=== PATIENT | male | born 1970 | race Caucasian/White ===

== ENCOUNTER 2017-01-28 09:34 | Emergency (ER) | payer OTHER ==
[~2017-01-28] VITALS: Ht 167.6 cm; Wt 120.2 kg
[~2017-01-28 09:34] MED LIST: ULTRAM 50MG TAB50 MG PO
[2017-01-28 09:36] VITALS: BP 168/116
[2017-01-28] MEDS ORDERED: NORCO 5-325 TA1 EACH PO (09:51)
[2017-01-28] MEDS ORDERED: LIORESAL 10 MG10 MG PO (09:53)
[2017-01-28] MEDS ORDERED: MEDROLDOSEPACK PO (09:53)
== END 2017-01-28 10:00 | disposition home or self-care (01) ==
LOC: ER 09:34
DX: S39.012A Strain of muscle, fascia and tendon of lower back, initial encounter (principal); M54.41 Lumbago with sciatica, right side; Z90.89 Acquired absence of other organs; X50.1XXA Overexertion from prolonged static or awkward postures, initial encounter; Y93.64 Activity, baseball; Y92.89 Other specified places as the place of occurrence of the external cause; Y99.8 Other external cause status

== ENCOUNTER 2018-02-11 14:14 | Emergency (ER) | payer OTHER ==
[~2018-02-11] VITALS: Ht 167.6 cm; Wt 117.9 kg
[~2018-02-11 14:14] MED LIST changes: +LIORESAL 10 MG10 MG PO; +MEDROLDOSEPACK PO; +NORCO 5-325 TA1 EACH PO
[2018-02-11 14:16] VITALS: BP 176/111
[2018-02-11] MEDS ORDERED: SYNTHROID125 MC1 PO (14:26)
[2018-02-11] MEDS ORDERED: IBUPROFEN 800800 M1 PO (14:26)
[2018-02-11] MEDS ORDERED: HYDROCODONE-AP1 EAC6 PO (15:04)
[2018-02-11] MEDS ORDERED: TRAMADOL 50 MG50 MG PO (15:16)
== END 2018-02-11 15:21 | disposition home or self-care (01) ==
LOC: ER 14:14
DX: S93.401A Sprain of unspecified ligament of right ankle, initial encounter (principal); X50.3XXA Overexertion from repetitive movements, initial encounter; Y93.89 Activity, other specified; Y92.89 Other specified places as the place of occurrence of the external cause; Y99.8 Other external cause status